=== PATIENT | female | born 1990 | race African-American/Black ===

== ENCOUNTER 2022-03-01 22:42 | Emergency (ER) | payer OTHER ==
[2022-03-01 22:57] VITALS: BP 114/70; PULSE 78; RESP 18; TEMP 98; BMI 27.9
== END 2022-03-02 00:32 | disposition home or self-care (01) ==
LOC: JER 22:42
DX: O26.893 Other specified pregnancy related conditions, third trimester (principal); H60.91 Unspecified otitis externa, right ear; Z3A.33 33 weeks gestation of pregnancy
CPT/HCPCS: 99283-25

== ENCOUNTER 2022-04-10 07:50 | Inpatient (IN) | payer OTHER ==
[2022-04-10] MEDS ORDERED: OXYTOCIN 30 UNITS in 0.9% NS 30 UNIT/500 ML INFUS.BAG IVPB SCH (09:30)
[2022-04-10 09:39] LABS: BASO % 0.3 % (0-2.0); EOS % 1.4 % (0-4.5); HEMATOCRIT 32.4 % (32.4-45.2); HEMOGLOBIN 10.5 GM/dL (10.7-15.3); LYMPH % 19.1 % (8-40); MCH 24.7 pg (25.7-33.7); MCHC 32.4 g/dl (32.0-36.0); MEAN CELL VOLUME 76.3 fl (80-96); MEAN PLT VOLUME 10.1 fl (7.5-11.1); NEUT % 74.2 % (42.8-82.8); PLATELET COUNT 186 10^3/uL (134-434); RBC 4.24 M/mm3 (3.60-5.2); RDW 13.9 % (11.6-15.6); WHITE BLOOD COUNT 7.1 K/mm3 (4.0-10.0)
[2022-04-10 09:48] LABS: INR 1.01 (0.83-1.09); PROTHROMBIN TIME (PATIENT) 11.6 SEC (9.7-13.0)
[2022-04-10 09:50] LABS: ACTIVATED PTT 29.8 SECONDS (25.2-36.5)
[2022-04-10 10:07] VITALS: BMI 27.2
[2022-04-10 10:16] LABS: BLOOD UREA NITROGEN 8.5 mg/dL (7-18); CALCIUM 8.8 mg/dL (8.5-10.1)
[2022-04-10 10:18] LABS: CREATININE 0.7 mg/dL (0.55-1.3)
[2022-04-10] MEDS: ELECTROLYTE-148 SOLN 1,000 ML IV SCH ×2 (10:45→14:40)
[2022-04-10] MEDS ORDERED: OXYTOCIN 30 UNITS in 0.9% NS 30 UNIT/500 ML INFUS.BAG IVPB ONE (11:07)
[2022-04-10 12:10] LABS: HIV INTERPRETATION NEGATIVE (NEGATIVE)
[2022-04-10] MEDS ORDERED: FENTANYL/BUPIVACAINE/NS/PF - PCEA - 50 ML DISP.SYRIN EP ONE (13:25)
[2022-04-10] MEDS ORDERED: PROMETHAZINE HCL 25 MG/1 ML VIAL IVPB ONE (13:30)
[2022-04-10] MEDS ORDERED: BUTORPHANOL TARTRATE 2 MG/ML VIAL IVPB ONE (13:30)
[2022-04-10] MEDS ORDERED: FENTANYL/BUPIVACAINE/NS/PF - PCEA - 50 ML DISP.SYRIN EP SCH (13:45)
[2022-04-10] MEDS ORDERED: NALOXONE HCL 0.4 MG/ML VIAL IVPUSH PRN (13:45)
[2022-04-10] MEDS ORDERED: BUPIVACAINE HCL/PF 0.25% (2.5MG/ML) 10 ML VIAL ONE ×2 (13:48→14:19)
[2022-04-10] MEDS ORDERED: FENTANYL CITRATE/PF 50 MCG/ML VIAL ONE (13:48)
[2022-04-10] MEDS ORDERED: OXYTOCIN 20 UNITS in 0.9% NS 20 UNIT/1,000 ML INFUS.BAG IV ONE (16:42)
[2022-04-10] MEDS ORDERED: LIDOCAINE HCL 1% PRESERVATIVE FREE - 30ML VIAL ONE (16:42)
[2022-04-10] MEDS ORDERED: BENZOCAINE 28 GM HEMORRHOIDAL OINTMENT TP PRN (17:18)
[2022-04-10] MEDS ORDERED: ACETAMINOPHEN 325 MG TABLET (FP) PO PRN (17:18)
[2022-04-10] MEDS ORDERED: WITCH HAZEL 50% (TUCKS) 40 PAD/JAR PAD TP PRN (17:18)
[2022-04-10] MEDS ORDERED: oxyCODONE HCL 5 MG TABLET PO PRN (17:18)
[2022-04-10] MEDS ORDERED: BISACODYL 10 MG SUPP.RECT RC PRN (17:18)
[2022-04-10] MEDS ORDERED: BENZOCAINE 20% 57 GM BOTTLE TP PRN (17:18)
[2022-04-10] MEDS ORDERED: METHYLERGONOVINE MALEATE 0.2 MG/1 ML AMP IM PRN (17:18)
[2022-04-10] MEDS ORDERED: OXYTOCIN 20 UNITS in 0.9% NS 20 UNIT/1,000 ML INFUS.BAG IV SCH (17:30)
[2022-04-10 18:09] LABS: CORD BASE EXCESS -5.4 mmol/L (0-2); CORD HCO3 21.5 mmHg (20-29); CORD PCO2 46.7 mmHg (30-78); CORD pH 7.28 (7.14-7.44)
[2022-04-10 18:11] LABS: CORD BASE EXCESS -5.8 mmol/L (0-2); CORD HCO3 21.1 mmHg (20-29); CORD PCO2 46.3 mmHg (30-78); CORD pH 7.277 (7.14-7.44)
[2022-04-10] MEDS ORDERED: IBUPROFEN 600 MG TABLET (FP) PO ONE (19:10)
[2022-04-10] MEDS: IBUPROFEN 600 MG TABLET (FP) PO PRN ×2 (19:20→23:05)
[2022-04-11] MEDS: PRENATAL VITAMINS W/ FOLIC ACID TABLET (FP) PO SCH (09:20)
[2022-04-11] MEDS: IBUPROFEN 600 MG TABLET (FP) PO PRN ×3 (09:20→21:34)
[2022-04-11 10:11] LABS: BASO % 0.4 % (0-2.0); EOS % 0.5 % (0-4.5); HEMATOCRIT 33.6 % (32.4-45.2); HEMOGLOBIN 10.9 GM/dL (10.7-15.3); LYMPH % 13.3 % (8-40); MCH 24.7 pg (25.7-33.7); MCHC 32.4 g/dl (32.0-36.0); MEAN PLT VOLUME 10.4 fl (7.5-11.1); MONO % 3.3 % (3.8-10.2); NEUT % 82.5 % (42.8-82.8); PLATELET COUNT 191 10^3/uL (134-434); RBC 4.42 M/mm3 (3.60-5.2); RDW 14.1 % (11.6-15.6); WHITE BLOOD COUNT 9.9 K/mm3 (4.0-10.0)
[2022-04-11 21:23] VITALS: RESP 18
[2022-04-11] MEDS ORDERED: SENNOSIDES/DOCUSATE COMBO (SENNA PLUS) TABLET (UD) PO PRN (22:00)
[2022-04-12 09:57] VITALS: BP 116/69; PULSE 92; TEMP 98.2
[2022-04-12] MEDS: PRENATAL VITAMINS W/ FOLIC ACID TABLET (FP) PO SCH (10:33)
== END 2022-04-12 12:05 | disposition home or self-care (01) | DRG 807 ==
LOC: JLDR 07:50 → J3W 20:04
PROVIDERS: ADMIT Obstetrics & Gynecology; ATTEND Obstetrics & Gynecology
PROC: 10E0XZZ Delivery of Products of Conception, External Approach (ICD-10-PCS; principal; 2022-04-10)
PROC: 3E033VJ Introduction of Other Hormone into Peripheral Vein, Percutaneous Approach (ICD-10-PCS; 2022-04-10)
DX: O42.02 Full-term premature rupture of membranes, onset of labor within 24 hours of rupture (principal); Z37.0 Single live birth; Z3A.39 39 weeks gestation of pregnancy
CPT/HCPCS: 36415; 36600; 59409; 80048; 82803; 85025; 85610; 85730; 86780; 86850; 86900; 86901; 87389; C9803-CS; U0003; U0005